=== PATIENT | male | born 1995 | race Caucasian/White ===

== ENCOUNTER 2017-08-21 00:42 | Emergency (ER) | payer OTHER ==
[~2017-08-21] VITALS: Ht 175.3 cm; Wt 68.0 kg
[2017-08-21 01:06] VITALS: BP 114/58; PULSE 74; RESP 20; TEMP 97.6; O2SAT 100
--- NOTE | 2017-08-21 01:28 | PD ---
HPI Chief Complaint: Injury Time Seen by Provider: 01:11 Travel History International Travel<30 days: No Contact w/Intl Traveler<30days: No Traveled to known affect area: No History of Present Illness HPI Patient is a 22-year-old male presenting to the emergency department for evaluation of a laceration to his right thumb. He states he was attempting to open a beer bottle when the Slipped and cut his finger. His tetanus vaccine is up-to-date. He denies any significant pain. He denies any loss of function. Patient further denies any numbness or weakness. Symptom onset was sudden, symptoms are mild in nature. There are no aggravating factors. [facility] Past Medical History Medical History: Denies Significant Hx Immunizations Current: Yes Tetanus Vaccination: Unknown Influenza Vaccination: No Past Surgical History Other Surgery: Yes (KNEE SURGERY) Social History Alcohol Use: Yes Tobacco Use: No Substance Use: No Allergies-Medications (Allergen,Severity, Reaction): Coded Allergies: Penicillins (Verified Allergy, Unknown, 08/21/17) Reported Meds & Prescriptions Reported Meds & Active Scripts Active No Active Prescriptions or Reported Medications Review of Systems Except as stated in HPI: all other systems reviewed are Neg Skin: Positive Other (Laceration) Physical Exam Narrative GENERAL: Well-developed, well-nourished, alert male. Presenting in no acute distress. SKIN: Warm and dry. 1 cm superficial laceration to the lateral aspect of the right first finger. HEAD: Normocephalic. EYES: No scleral icterus. No injection or drainage. NECK: Supple, trachea midline. No JVD or lymphadenopathy. CARDIOVASCULAR: Regular rate and rhythm without murmurs, gallops, or rubs. RESPIRATORY: Breath sounds equal bilaterally. No accessory muscle use. GASTROINTESTINAL: Abdomen soft, non-tender, nondistended. MUSCULOSKELETAL: No cyanosis, or edema. Patient is neurovascularly intact. Full range of motion and strength in the right first finger. Sensation is intact. BACK: Nontender without obvious deformity. No CVA tenderness. Data Data Last Documented VS Vital Signs Date Time Temp Pulse Resp B/P (MAP) Pulse Ox O2 Delivery O2 Flow Rate FiO2 08/21/17 01:06 97.6 74 20 114/58 (76) 100 Orders Orders Splint Or Brace Apply/Monitor (08/21/17 01:25) Ed Discharge Order (08/21/17 01:25) MDM Medical Decision Making Medical Screen Exam Complete: Yes Emergency Medical Condition: Yes Interpretation(s) Vital Signs Date Time Temp Pulse Resp B/P (MAP) Pulse Ox O2 Delivery O2 Flow Rate FiO2 08/21/17 01:06 97.6 74 20 114/58 (76) 100 Differential Diagnosis Laceration versus abrasion versus contusion versus tendon injury Narrative Course Patient is a 22-year-old male who presented to the emergency department for evaluation of changes prior to arrival. Patient has no focal deficits on exam. Please see procedure report for laceration repair. Patient was advised on how to care for his stitches and when they would need to be removed. He was encouraged return to emergency department any new or worsening symptoms. Patient verbalized understanding these instructions. Patient stable for discharge. Procedures Procedure Narrative LACERATION LOCATION: Left first finger LENGTH: 1 cm NUMBER OF STITCHES/EDDIE: 3 stitches REPAIR: The area of the laceration was prepped with Betadine and sterilely draped. The laceration was infiltrated with 1% lidocaine. The wound was copiously irrigated and explored without evidence of foreign body, tendon injury or neurovascular injury. The wound was closed using 6-0 Prolene this was a 1 layer repair. A sterile dressing was applied. The patient was advised to keep the dressing clean and dry. Patient tolerated the procedure well. Diagnosis Primary Impression: Finger laceration Qualified Codes: S61.012A - Laceration without foreign body of left thumb without damage to nail, initial encounter Referrals: Primary Care Physician 1 week Patient Instructions: Care For Your Stitches (ED), Finger Laceration (ED), General Instructions Additional Instructions: Stitches will need to be removed in 7-10 days, you can return to emergency department or follow-up with her primary doctor Take ibuprofen or acetaminophen as needed and as directed for pain Use finger splint for support to avoid pulling on stitches. Do not submerge hand in water, stay out of the ocean until wound is well-healed Return to emergency department for any new or worsening symptoms Med/Other Pt SpecificInfo: No Change to Meds Scripts No Active Prescriptions or Reported Meds Disposition: 01 DISCHARGE HOME Condition: Stable Purvi Rogers August 21, 2017 01:28
== END 2017-08-21 02:01 | disposition home or self-care (01) ==
LOC: NEPD 00:42
DX: S61.011A Laceration without foreign body of right thumb without damage to nail, initial encounter (principal); W25.XXXA Contact with sharp glass, initial encounter; Y93.89 Activity, other specified; Z88.0 Allergy status to penicillin
CPT/HCPCS: 12001